=== PATIENT | male | born 1955 | race Caucasian/White ===

== ENCOUNTER → 2016-08-14 | Outpatient (CLI) | payer BC ==
--- NOTE | ~2016-08-14 | CR181 ---
[facility] A Service of [facility] RADIOLOGY TEXT RESULTS PATIENT: FELIX SOW LOCATION: [facility] : 57 UNIT #: [id number] AGE: [address]: Yamile Carr APRN SEX: M ORDER DR: [id number] [facility] [address] [place], [place] [address] [id number] O MR#: [id number] Acc #: [id number] NAME: FELIX SOW : 1955 SEX: M STUDY DATE/TIME: 08/14/2016 10:16 UNIT: [facility] ROOM: STUDY DESCRIPTION: CR Lumbar Spine 2 or 3 Views Attending Physician: Yamile Carr Aprn Referring Physician: Yamile Carr Aprn Ordering Physician: Yamile Carr Aprn Primary Care Physician: [facility], [facility] MEDICAL IMAGING REPORT This report is preliminary unless electronic signature is present EXAM Lumbar spine, 08/14 HISTORY Degenerative disc disease. Chronic low back pain for 15 years with numbness and tingling in the legs. FINDINGS Lateral flexion and extension views of the lumbar spine were obtained. There is degenerative endplate spurring and disc space narrowing at L3-4, L4-5 and L5-S1, as well at L1-2 to a lesser degree. No compression fracture. Alignment is normal on all three views. Incidental note is made of diffuse atherosclerotic disease. IMPRESSION Multilevel degenerative disc disease with relative sparring of L2-3. No compression fractures are seen. Alignment is normal. Dictated by... Carlos Ferro Jr., M.D. THIS IS AN ELECTRONICALLY VERIFIED REPORT Carlos Ferro Jr., M.D. at 08/16/2016 6:06 AM DAVID/davin TD: 08/15/2016 10:48 JOB #: [id number] MEDICAL IMAGING REPORT Page 1 of 1 COPY
--- NOTE | ~2016-08-14 | CR58 ---
[facility] A Service [facility] RADIOLOGY TEXT RESULTS PATIENT: FELIX SOW LOCATION: [facility] : 57 UNIT #: [id number] AGE: [address]: Yamile Carr APRN SEX: M ORDER DR: [id number] [facility] [address] [place], [place] [address] [id number] O MR#: [id number] Acc #: [id number] NAME: FELIX SOW : 1955 SEX: M STUDY DATE/TIME: 08/14/2016 10:15 UNIT: [facility] ROOM: STUDY DESCRIPTION: CR Cervical Spine 2 or 3 Views Attending Physician: Yamile Carr Aprn Referring Physician: Yamile Carr Aprn Ordering Physician: Yamile Carr Aprn [facility] REPORT This report is preliminary unless electronic signature is present EXAM Cervical spine, 08/14. HISTORY Degenerative disc disease. Neck pain chronically for 15 years. Numbness and tingling in the upper extremities. FINDINGS Lateral flexion and extension views of the cervical spine were obtained. No comparison. There is degenerative disc space narrowing and endplate osteophyte formation at C5-6 and C6-7. No fractures are seen. There is very subtle anterolisthesis of C3 on C4 which is stable in the neutral as well as the flexed and extended positions. Prevertebral soft tissues are normal. IMPRESSION Degenerative disc disease at C5-6 and C6-7. Stable mild grade 1 spondylolisthesis at C3-4. Alignment is otherwise normal. Dictated by... Carlos Ferro Jr., M.D. THIS IS AN ELECTRONICALLY VERIFIED REPORT Carlos Ferro Jr., M.D. at 08/16/2016 6:06 AM DAVID/sydni TD: 08/15/2016 10:51 JOB #: [id number] MEDICAL IMAGING REPORT [facility] A Service of [facility] RADIOLOGY TEXT RESULTS PATIENT: FELIX SOW LOCATION: [facility] #: [id number] : 57 UNIT #: [id number] AGE: [address]: Yamile Carr APRN SEX: M ORDER DR: Page 1 of 1 COPY
== END | disposition home or self-care (01) ==
LOC: CRAD 10:06
DX: M51.36 Other intervertebral disc degeneration, lumbar region (principal); M50.30 Other cervical disc degeneration, unspecified cervical region; M50.322 Other cervical disc degeneration at C5-C6 level; M50.323 Other cervical disc degeneration at C6-C7 level; M43.12 Spondylolisthesis, cervical region
CPT/HCPCS: 72040; 72100